=== PATIENT | male | born 1945 | race Caucasian/White ===

== ENCOUNTER 2017-06-15 19:04 | Emergency (ER) | payer OTHER ==
[~2017-06-15] VITALS: Ht 195.6 cm; Wt 86.2 kg
--- NOTE | 2017-06-15 19:09 | NUR ---
Patient to ER bed 05 to gown for evaluation. Side rails up.
[2017-06-15 19:10] VITALS: BP_SYST 117
--- NOTE | 2017-06-15 19:12 | NUR ---
Patient brought to ED via BLS a/o x 4 with c/o urinary retention x 3 days. Patient states he has been unable to void prior to ED visit. States he urinated a small amount this afternoon. Reports he has not been drinking enough water. Patient states he feels as if his bladder is full. No obvious distention noted. Denies fever. No other complaints at this time. Will continue to monitor.
--- NOTE | 2017-06-15 19:15 | NUR ---
Note undone in EDM - 06/15/17 at 2132 by [email or web address] Patient arrived to ED a/o x 4 with c/o chest pain since this afternoon. Patient reports a sharp substernal pain radiating downward to the epigastric region. Patient reports 8/10 pain with left sided neck swelling. Patient has hx of cardiac stent placement. Denies SOB, Denies N/V. Patient reports improvement of symptoms upon ED arrival. Skin warm, dry and pink. at bedside. Will continue to monitor.
[2017-06-15] MEDS ORDERED: ACET-2165 PO (19:50)
[2017-06-15] MEDS ORDERED: MAGN400O4 PO (19:51)
[2017-06-15] MEDS ORDERED: ANT30 PO (19:52)
[2017-06-15] MEDS ORDERED: LISI-600 PO (19:52)
[2017-06-15] MEDS ORDERED: SENN-104 PO (19:53)
[2017-06-15] MEDS ORDERED: ESCI20TA PO (19:54)
[2017-06-15] MEDS ORDERED: PROP10TA10 PO (19:54)
[2017-06-15] MEDS ORDERED: SER100 PO (19:55)
[2017-06-15] MEDS ORDERED: BEN50 PO (19:56)
[2017-06-15] MEDS ORDERED: LORA-258 PO ×2 (19:56→19:59)
[2017-06-15] MEDS ORDERED: CAT.1 PO (19:57)
[2017-06-15] MEDS ORDERED: LOPE2CAP PO (19:58)
--- NOTE | 2017-06-15 21:10 | NUR ---
16 FR Barragan catheter with use of sterile technique. Immediate return of 400 cc orlin urine noted. Bedside drainage bag placed below level of bladder. Urine sample collected and sent to lab. Pt tolerated procedure well. Patient unable to toilet self.
[2017-06-15 21:56] LABS: BILIRUBIN,URINE 1+ (NEGATIVE); BLOOD, URINE NEGATIVE (NEGATIVE); CLARITY/URINE CLEAR (CLEAR); COLOR,URINE YELLOW (YELLOW); GLUCOSE,URINE NEGATIVE (NEGATIVE); KETONES,URINE TRACE (NEGATIVE); LEUKOCYTE ESTERASE ,URINE NEGATIVE (NEGATIVE); NITRITE, URINE NEGATIVE (NEGATIVE); PROTEIN URINE NEGATIVE (NEGATIVE); UROBILINOGEN,URINE 0.2 (0.2-1.0)
[2017-06-15 21:57] LABS: ANION GAP 7 (5-15); CALCIUM 9.4 mg/dL (8.4-11.0); CHLORIDE 107 mmol/L (98-107); CREATININE 1.32 mg/dL (0.55-1.30); GLUCOSE 109 mg/dL (70-99); SODIUM SERUM 141 mmol/L (136-145); UREA NITROGEN, BLOOD 17 mg/dL (8-21)
[2017-06-15 21:59] LABS: WHITE BLOOD COUNT (AUTO) 6.4 K/uL (4.8-10.8)
--- NOTE | 2017-06-15 22:00 | NUR ---
Patient reports relief of bladder distention. 600 mL orlin urine noted to mello.
[2017-06-15 22:02] LABS: ALANINE AMINOTRANSFERASE 23 U/L (12-78); ALBUMIN 3.9 g/dL (3.4-4.8); ASPARTATE AMINOTRANSFERASE 16 U/L (10-37); TOTAL BILIRUBIN 0.6 mg/dL (0.0-1.0)
[2017-06-15 22:15] LABS: HEMATOCRIT 37.3 % (36-54); HEMOGLOBIN 11.9 g/dL (14.0-18.0); MEAN CORPUSCULAR HEMOGLOBIN 24 pg (27-31); MEAN CORPUSCULAR HGB CONC 32 % (32-36); MEAN CORPUSCULAR VOLUME 74 fL (79.0-98.0); RED BLOOD CELL COUNT(AUTO) 5.03 MIL/uL (4.2-6.2); RED CELL DISTRIBUTION WIDTH 23.8 % (9.0-15.0)
--- NOTE | 2017-06-15 22:35 | NUR ---
ED MD Keating at bedside reassessing patient.
[2017-06-15 22:37] LABS: PLATELET COUNT (AUTO) 203 K/uL (130-430)
[2017-06-15 22:40] LABS: BAND % (MANUAL) 9 % (0-6); LYMPHOCYTES % (MANUAL) 18 % (20-46)
[2017-06-15 22:41] LABS: ATYPICAL LYMPHOCYTES % 8 % (0-0); BASOPHILS % (MANUAL) 0 % (0-2); EOSINOPHILS % (MANUAL) 0 % (0-7); MONOCYTES % (MANUAL) 6 % (0-11)
[2017-06-15] MEDS ORDERED: TAMSULOSIN HCL 0.4 MG CAP PO ONE (23:00)
[2017-06-15] MEDS ORDERED: FINASTERIDE 5 MG TABLET (PROSCAR) PO ONE (23:00)
--- NOTE | 2017-06-15 23:10 | NUR ---
ED MD Keating at bedside reassessing patient.
[2017-06-15] MEDS ORDERED: TAMSULOSIN HCL 0.4 MG CAP ONE (23:18)
[2017-06-15] MEDS ORDERED: FINASTERIDE 5 MG TABLET (PROSCAR) ONE (23:18)
--- NOTE | 2017-06-15 23:40 | NUR ---
Barragan catheter discontinued
[2017-06-16] VITALS: BP_SYST 144
--- NOTE | 2017-06-16 | NUR ---
Patient to be transferred to [place]. Is being transferred due to higher level of care. Receiving facility has accepting physician and available space. ER physician has signed transfer form. Patient or responsible alliance party has agreed to transfer and signed form. Patient belongings inventoried and will be sent with patient. Copy of nursing notes, lab reports, EKG, Physicians Orders and X-rays to be sent with patient. Report called to Agata at receiving facility. [facility] has been called for transfer. ETA is 30 minutes.
== END 2017-06-16 | disposition home or self-care (01) ==
LOC: EDBD 19:04 → SED 19:04
DX: N40.1 Benign prostatic hyperplasia with lower urinary tract symptoms (principal); R33.8 Other retention of urine; F32.9 Major depressive disorder, single episode, unspecified; I10 Essential (primary) hypertension; Z98.890 Other specified postprocedural states
CPT/HCPCS: 36415; 80053; 81003; 85007; 85027; 99285

== ENCOUNTER 2020-02-05 17:20 | Emergency (ER) | payer OTHER ==
[~2020-02-05] VITALS: Ht 177.8 cm; Wt 72.6 kg
[2020-02-05 17:20] VITALS: BP_SYST 145
[~2020-02-05 17:20] MED LIST: ACET-2165 PO; ANT30 PO; BEN50 PO; CAT.1 PO; ESCI20TA PO; LISI-600 PO; LOPE2CAP PO; LORA-258 PO; MOM PO; PROP10TA10 PO; SENN-104 PO; SER100 PO
--- NOTE | 2020-02-05 17:20 | NUR ---
ER Dr. Zuniga at bedside examining patient.
--- NOTE | 2020-02-05 17:20 | NUR ---
Patient is awake, alert, and oriented x1. Patient arrived via BLS for medical clearance to [facility].
--- NOTE | 2020-02-05 17:20 | NUR ---
Patient to ER hallway evaluation. Side rails up.
[2020-02-05 17:39] LABS: BILIRUBIN,URINE NEGATIVE (NEGATIVE); BLOOD, URINE 1+ (NEGATIVE); CLARITY/URINE CLEAR (CLEAR); COLOR,URINE YELLOW (YELLOW); GLUCOSE,URINE TRACE (NEGATIVE); KETONES,URINE TRACE (NEGATIVE); LEUKOCYTE ESTERASE ,URINE NEGATIVE (NEGATIVE); NITRITE, URINE NEGATIVE (NEGATIVE); PROTEIN URINE NEGATIVE (NEGATIVE)
[2020-02-05 17:44] LABS: BASOPHILS % (AUTO) 0.7 % (0.0-2.0); EOSINOPHILS # (AUTO) 0.1 K/uL (0.0-0.4); EOSINOPHILS % (AUTO) 1.9 % (0.0-4.0); HEMATOCRIT 45.6 % (36-54); HEMOGLOBIN 14.6 g/dL (14.0-18.0); LYMPHOCYTES # (AUTO) 1.8 K/uL (1.0-5.5); LYMPHOCYTES % (AUTO) 31.7 % (20.5-51.5); MEAN CORPUSCULAR HEMOGLOBIN 31 pg (27-31); MEAN CORPUSCULAR HGB CONC 32 % (32-36); MEAN CORPUSCULAR VOLUME 96 fL (79.0-98.0); MONOCYTES # (AUTO) 0.5 K/uL (0.0-1.0); MONOCYTES % (AUTO) 8.5 % (1.7-9.3); NEUTROPHILS # (AUTO) 3.2 K/uL (1.8-7.7); NEUTROPHILS % (AUTO) 57.2 % (40.0-70.0); PLATELET COUNT (AUTO) 137 K/uL (130-430); RED BLOOD CELL COUNT(AUTO) 4.75 MIL/uL (4.2-6.2); RED CELL DISTRIBUTION WIDTH 14.9 % (9.0-15.0); WHITE BLOOD COUNT (AUTO) 5.6 K/uL (4.8-10.8)
[2020-02-05 17:49] LABS: BACTERIA,URINE FEW /HPF (None Seen); MUCUS,URINE None Seen /LPF (None Seen); WBC,URINE NONE SEEN /HPF (0-3)
[2020-02-05 17:50] LABS: BARBITURATE, URINE NEGATIVE (NEG <=200); BENZODIAZEPINE, URINE POSITIVE (NEG <=150); CANNABINOID, URINE NEGATIVE (NEG <=50); COCAINE, URINE NEGATIVE (NEG <=150); METHAMPHETAMINES SCREEN,URINE NEGATIVE (NEG <=500); PHENCYCLIDINE SCREEN,URINE NEGATIVE (NEG <=25); URINE AMPHETAMINE NEGATIVE (NEG <=500); URINE METHADONE NEGATIVE (NEG <=200)
[2020-02-05 17:51] LABS: OPIATE, URINE POSITIVE (NEG <=100); UR TRICYCLIC ANTIDEPRESSANTS NEGATIVE (NEG <=300); URINE OXYCODONE SCREEN NEGATIVE (NEG <=100); URINE PROPOXYPHENE SCREEN NEGATIVE (NEG <=300)
[2020-02-05 17:52] LABS: ANION GAP 7 (5-15); CHLORIDE 108 mmol/L (98-107); CREATININE 0.99 mg/dL (0.55-1.30); GLUCOSE 98 mg/dL (70-99); POTASSIUM 4.2 mmol/L (3.5-5.1); SODIUM SERUM 143 mmol/L (136-145); UREA NITROGEN, BLOOD 17 mg/dL (8-21)
[2020-02-05 18:05] LABS: ACETAMINOPHEN 17 ug/mL (1-30); ALANINE AMINOTRANSFERASE 28 U/L (12-78); ALBUMIN 3.7 g/dL (3.4-4.8); ASPARTATE AMINOTRANSFERASE 18 U/L (10-37); TOTAL BILIRUBIN 0.4 mg/dL (0.0-1.0)
[2020-02-05 18:07] LABS: ALCOHOL, BLOOD < 3 mg/dL (<10)
--- NOTE | 2020-02-05 18:30 | NUR ---
[facility] notified that patient has been medically cleared.
[2020-02-05 18:31] VITALS: BP_SYST 132
--- NOTE | 2020-02-05 18:33 | NUR ---
[facility] on site to transfer patient.
[2020-02-07 09:40] LABS: CHOLESTEROL 147 mg/dL (<200); HDL CHOLESTEROL 42 mg/dL (>45); LDL CHOLESTEROL 82 mg/dL (<100); TRIGLYCERIDES 76 mg/dL (30-150)
== END 2020-02-05 18:31 ==
LOC: SED 17:20
DX: F41.9 Anxiety disorder, unspecified (principal); I10 Essential (primary) hypertension; F32.9 Major depressive disorder, single episode, unspecified; Z79.899 Other long term (current) drug therapy
CPT/HCPCS: 36415; 80053; 80307; 81000; 84443; 85025; 87081; 99285; G0480; G0481; G0482; 80061; 83036

== ENCOUNTER 2020-03-23 17:09 | Emergency (ER) | payer OTHER, MEDICARE ==
[~2020-03-23] VITALS: Ht 177.8 cm; Wt 72.6 kg
[2020-03-23 17:10] VITALS: BP_SYST 92
[2020-03-23 18:09] LABS: ANION GAP 9 (5-15); CALCIUM 9.2 mg/dL (8.4-11.0); CHLORIDE 105 mmol/L (98-107); CREATININE 1.78 mg/dL (0.55-1.30); GLUCOSE 109 mg/dL (70-99); POTASSIUM 4.9 mmol/L (3.5-5.1); SODIUM SERUM 143 mmol/L (136-145); UREA NITROGEN, BLOOD 37 mg/dL (8-21)
[2020-03-23 18:11] LABS: BASOPHILS % (AUTO) 0.3 % (0.0-2.0); EOSINOPHILS # (AUTO) 0.2 K/uL (0.0-0.4); EOSINOPHILS % (AUTO) 2.1 % (0.0-4.0); HEMATOCRIT 41.7 % (36-54); HEMOGLOBIN 13.3 g/dL (14.0-18.0); LYMPHOCYTES # (AUTO) 1.3 K/uL (1.0-5.5); LYMPHOCYTES % (AUTO) 18.4 % (20.5-51.5); MEAN CORPUSCULAR HEMOGLOBIN 30 pg (27-31); MEAN CORPUSCULAR HGB CONC 32 % (32-36); MEAN CORPUSCULAR VOLUME 93 fL (79.0-98.0); MONOCYTES # (AUTO) 0.7 K/uL (0.0-1.0); MONOCYTES % (AUTO) 9.6 % (1.7-9.3); NEUTROPHILS # (AUTO) 5.1 K/uL (1.8-7.7); NEUTROPHILS % (AUTO) 69.6 % (40.0-70.0); PLATELET COUNT (AUTO) 127 K/uL (130-430); RED BLOOD CELL COUNT(AUTO) 4.49 MIL/uL (4.2-6.2); RED CELL DISTRIBUTION WIDTH 14.6 % (9.0-15.0); WHITE BLOOD COUNT (AUTO) 7.3 K/uL (4.8-10.8)
[2020-03-23 18:14] LABS: ACETAMINOPHEN 4 ug/mL (1-30); ALANINE AMINOTRANSFERASE 22 U/L (12-78); ASPARTATE AMINOTRANSFERASE 12 U/L (10-37); TOTAL BILIRUBIN 0.6 mg/dL (0.0-1.0)
[2020-03-23 18:17] LABS: ALCOHOL, BLOOD < 3 mg/dL (<10)
[2020-03-23] MEDS ORDERED: LORazepam 2 MG/ML VIAL IM ONE (18:45)
[2020-03-23 19:30] VITALS: BP_SYST 104
== END 2020-03-23 19:30 ==
LOC: SED 17:09
DX: D36.10 Benign neoplasm of peripheral nerves and autonomic nervous system, unspecified (principal); I10 Essential (primary) hypertension; Z79.899 Other long term (current) drug therapy
CPT/HCPCS: 36415; 80053; 85025; 93005; 96372; 99285; G0480; G0481; G0482; J2060